=== PATIENT | female | born 1955 | race Caucasian/White ===

== ENCOUNTER 2016-12-04 10:11 | Day surgery (SDC) | payer BC ==
[2016-12-04] MEDS ORDERED: LIDOCAINE 2% MDV (20MG/ML) 20ML VIAL IV ONE (14:00)
[2016-12-04] MEDS ORDERED: PROPOFOL 10 MG/ML VIAL IV ONE (14:00)
[2016-12-04] MEDS ORDERED: MIDAZOLAM HCL 2MG/2ML VIAL IV ONE (14:00)
--- NOTE | 2016-12-06 13:00 | Operative Note ---
DATE OF SURGERY: 12/04/2016 OPERATION: COLONOSCOPY to the cecum with cold snare polypectomy x1 and cold biopsy forceps polypectomy x1. INDICATION: Family history of colon cancer in multiple second-degree relatives. Patient also with personal history of breast cancer. She has had hyperplastic polyps noted in the past. ANESTHESIA: Intravenous sedation was administered by the department of anesthesiology and included Diprivan titrated to effect. PROCEDURE: Following informed consent from this alert individual including a discussion of the risks and benefits of the procedure and an opportunity for the patient to ask questions, the patient was in the left lateral decubitus position. A digital rectal examination was performed. No abnormalities were noted. Following this, the Olympus ASP539 video colonoscope was inserted into the rectum without resistance. The rectal mucosa had a normal appearance with normal folds and distensibility. The colonoscope was advanced up through the colon to the level of the cecum without much difficulty. Throughout the bowel the mucosa appeared normal, the folds were normal, and the bowel was fairly well distensible. The cecum was defined by noting the appendiceal orifice and ileocecal valve. Preparation was good. From the base of the cecum, the colonoscope was then withdrawn. Retroflexion was first accomplished within the cecum and failed to demonstrate any changes. Withdrawal through the bowel demonstrated a 5 mm sessile polyp in the descending colon which was removed with cold snare polypectomy. There was a second 3 mm polyp noted in the rectum removed with cold biopsy forceps. Retroflexion in the rectum demonstrated hypertrophied anal papilla. No other mucosal changes were appreciated. The patient tolerated the procedure well and was returned to the recovery area in stable condition. IMPRESSION: 1. A 5 mm descending colon polyp removed with cold snare polypectomy. 2. A 3 mm rectal polyp removed with biopsy forceps. 3. Hypertrophied anal papilla. RECOMMENDATIONS: Further recommendations will be forthcoming pending results of pathology obtained today. The patient will most likely undergo recheck colonoscopy recommendations in 5 years' time. Followup will also be with Dr. Jama Silva. As always, thank you for allowing me to participate in the care of your patient. CC: Dr. Ricardo FELDER
== END 2016-12-04 13:04 | disposition home or self-care (01) ==
LOC: HOP 10:11
PROVIDERS: ATTEND Internal Medicine Gastroenterology
DX: Z87.19 Personal history of other diseases of the digestive system (principal); D12.4 Benign neoplasm of descending colon; K62.1 Rectal polyp; Z80.0 Family history of malignant neoplasm of digestive organs; Z85.3 Personal history of malignant neoplasm of breast; K62.89 Other specified diseases of anus and rectum; E78.00 Pure hypercholesterolemia, unspecified

== ENCOUNTER 2018-06-13 13:31 | Emergency (ER) | payer BC ==
--- NOTE | 2018-06-13 13:42 | Emergency Department Record ---
History of Present Illness - General Chief complaint: GI Bleed Stated complaint: BLOOD IN STOOL Time Seen by Provider: 06/13/18 13:37 Source: Patient Mode of Arrival: Ambulatory Limitations: No limitations - History of Present Illness Initial comments: 62 yo female presents after having a blood bowel movement 15 minutes ago. She was asymptomatic prior to this. She denies and symptoms currently. No abdominal pain, fever, nausea, or vomiting. She states she is in her normal state of health. No prior gastrointestinal bleeding. Her last colonoscopy was 11/2016. A colon polyp and rectal polyp were noted. Dr Silva is her PCP and Dr Plasencia is her GI physician. Her next colonoscopy is scheduled in 2021 (every 5 years) as there is a family history of colon CA. MD complaint: Gross hematochezia -: Minutes(s) (15) Radiation: None Quality: Painless Consistency: Intermittent Improves with: None Worsens with: None Context: Other (No history of the same) Associated Symptoms: Denies other symptoms - Related Data Home Medications Medication Instructions Recorded Confirmed Last Taken Atorvastatin Calcium [Lipitor] 20 mg PO DAILY 06/13/18 06/13/18 06/13/18 Calcium Carbonate [Calcium] 500 mg PO DAILY 06/13/18 06/13/18 06/13/18 Cholecalciferol (Vitamin D3) 1,000 unit PO DAILY 06/13/18 06/13/18 06/13/18 [Vitamin D3] Fexofenadine/Pseudoephedrine 1 each PO DAILY 06/13/18 06/13/18 06/13/18 [Annette-D 24 Hour Tablet] Glucosamine HCl 1,500 mg PO DAILY 06/13/18 06/13/18 06/13/18 Glucosamine/D3/Boswellia Mary 1 each PO DAILY 06/13/18 06/13/18 06/13/18 [Osteo Bi-Flex Tablet] Multivit-Min/Iron/Folic/Lutein 1 each PO DAILY 06/13/18 06/13/18 06/13/18 [Centrum Silver Women Tablet] Allergies Allergy/AdvReac Type Severity Reaction Status Date / Time Penicillins Allergy RASH Verified 06/13/18 13:42 Review of Systems Constitutional: Denies: Chills, Fever, Malaise, Weakness Eyes: Denies: Eye discharge ENT: Denies: Congestion, Throat pain Respiratory: Denies: Cough Cardiovascular: Denies: Chest pain, Syncope Endocrine: Denies: Fatigue Gastrointestinal: Reports: Hematochezia. Denies: Abdominal pain, Constipation, Diarrhea, Hematemesis, Melena, Nausea, Vomiting Genitourinary: Denies: Dysuria Musculoskeletal: Denies: Arthralgia, Back pain, Joint swelling, Myalgia Skin: Denies: Bruising, Change in color, Rash Neurological: Denies: Headache Psychiatric: Denies: Anxiety Hematological/Lymphatic: Denies: Blood Clots, Easy bleeding, Easy bruising, Swollen glands Past Medical History - SOCIAL HISTORY Smoking Status: Never smoker - RESPIRATORY Hx Respiratory Disorders: No - CARDIOVASCULAR Hx Cardio Disorders: Yes - NEURO Hx Neuro Disorders: Yes Hx Headaches: Yes (weather related) - GI Hx GI Disorders: Yes Hx Rectal Bleeding: Yes (on tissue) Hx of Polyps: Yes - Hx Genitourinary Disorders: No - ENDOCRINE Hx Endocrine Disorders: No - MUSCULOSKELETAL Hx Musculoskeletal Disorders: Yes Hx Arthritis: Yes - PSYCH Hx Psych Problems: No - HEMATOLOGY/ONCOLOGY Hx Hematology/Oncology Disorders: Yes Hx Cancer: Yes Hx Chemotherapy: Yes Hx Radiation Therapy: Yes Hx Blood Transfusions: Yes (with hyst) Hx Blood Transfusion Reaction: No Family Medical History *Cancer Comment: Paternal uncle-colon (age 80), Niece-colon Physical Exam - General General Appearance: Alert, Oriented x3, Cooperative, No acute distress Limitations: No limitations - Head Head exam: Atraumatic, Normal inspection - Eye Eye exam: Normal appearance. negative: Conjunctival injection - ENT ENT exam: Normal exam, Mucous membranes moist Ear exam: Normal external inspection Nasal Exam: Normal inspection Mouth exam: Normal external inspection - Neck Neck exam: Normal inspection - Respiratory Respiratory exam: Normal lung sounds bilaterally. negative: Respiratory distress - Cardiovascular Cardiovascular Exam: Regular rate, Normal rhythm, Normal heart sounds - GI/Abdominal GI/Abdominal exam: Soft. negative: Distended, Guarding, Tenderness - Rectal Rectal exam: Heme (+) stool, Hemorrhoids, Other (The anus has some redundant tissue possible fissure, the stool is light brown with minimal visible streak faintly of blood.). negative: Black stool (light brown), Bloody stool, Decreased rectal tone, Fecal impaction, Mass, Normal inspection - exam: Deferred - Extremities Extremities exam: Normal inspection. negative: Tenderness - Back Back exam: Denies: CVA tenderness (R), CVA tenderness (L) - Neurological Neurological exam: Alert, Oriented X3 - Psychiatric Psychiatric exam: Normal affect, Normal mood - Skin Skin exam: Dry, Intact, Normal color, Warm Course - Reevaluation(s) Reevaluation #1: The EMR was reviewed. Hgb was 14.4 in January. The Colonoscopy 11/2016 was reviewed. Polyps noted in descending colon and rectum otherwise negative. 06/13/18 13:42 Rectal examination demonstrated light brown stool with a very small faint streak of blood. No gross blood. 06/13/18 14:02 The CBC was reviewed. Hgb is 15.4 06/13/18 14:15 The BMP is normal. 06/13/18 14:22 The blood noted on examination may be hemorrhoid or fissure related. There does not appear to be any ongoing bleeding and the rectal examination suggests more of a distal process near the anus given minimal to no visible blood on rectal examination with light brown stool. She will be given precautions and reasons to return to the ED for a recheck. She was referred back to Dr Plasencia as well from GI. Medical Decision Making - Lab Data Result diagrams: 06/13/18 13:51 06/13/18 13:51 Disposition Disposition: Discharge Clinical Impression: Lower GI bleed Disposition: Home, Self-Care Condition: (1) Good Instructions: Gastrointestinal Bleeding (ED) Additional Instructions: Call your doctor for the next available follow up appointment You have been referred to Dr Plasencia for the blood in the stool you had today. Return to the ER for a recheck if worse, any new concerns or questions Review this ER visit and the tests performed with your family doctor Referrals: SWAPNA PLASENCIA [DOCTOR OF OSTEOPATH] - [facility] [Provider Group] Forms: Patient Portal Access Time of Disposition: 14:16 Quality - Quality Measures Quality Measures: N/A - Blood Pressure Screening Does Patient Have Any of the Following: No Blood Pressure Classification: Pre-Hypertensive BP Reading Systolic Measurement: 128 Diastolic Measurement: 77 Screening for High Blood Pressure: < Pre-Hypertensive BP, F/U Documented > [ [id number]] Pre-Hypertensive Follow-up Interventions: Referral to alternative/primary care provider.
[2018-06-13 14:00] LABS: BASO % 0.5 % (0-6); EOS % 1.5 % (0-6); GRAN % 65.5 % (47-80); HEMATOCRIT 44.8 % (35.0-47.0); HEMOGLOBIN 15.3 gm/dl (11.6-16.0); LYMPH % 25.8 % (16-45); MEAN CELL VOLUME 87.5 fl (81-97); MEAN CORPUSCULAR HEMOGLOBIN 29.9 pg (27-33); MEAN CORPUSCULAR HGB CONC 34.2 g/dl (32-36); MEAN PLATELET VOLUME 9.2 fl (7.4-10.4); MONO % 6.7 % (0-9); PLATELET COUNT 355 K/uL (130-400); RED BLOOD COUNT 5.12 M/uL (3.80-5.40); RED CELL DISTRIBUTION WIDTH 13.1 % (11.5-14.5); WHITE BLOOD COUNT W/O DIFF 7.4 K/uL (4.2-12.2)
[2018-06-13 14:11] LABS: BLOOD UREA NITROGEN 17 mg/dL (8-23); CREATININE 0.8 mg/dL (0.5-0.9); EST GLOMERULAR FILTRATION RATE > 60 mL/min
[2018-06-13 14:12] LABS: TOTAL PROTEIN 7.7 g/dL (6.6-8.7)
[2018-06-13 14:14] LABS: GLUCOSE,RANDOM 120 mg/dL (74-109)
[2018-06-13 14:15] LABS: PARTIAL THROMBOPLASTIN TIME 28.7 SECONDS (24.5-39.1); PROTHROMBIN TIME (PATIENT) 10.2 SECONDS (9.5-12.1)
[2018-06-13 14:17] LABS: ALB/GLOB RATIO 1.4 (1.1-1.8); ALBUMIN 4.5 g/dL (4.0-5.0); ALKALINE PHOSPHATASE 89 U/L (45-87); ALT/SGPT 18 U/L (<33); AST/SGOT 20 U/L (10.0-35.0)
== END 2018-06-13 14:39 | disposition home or self-care (01) ==
LOC: ER 13:31
DX: K92.1 Melena (principal); Z85.3 Personal history of malignant neoplasm of breast
CPT/HCPCS: 80053; 85025; 85610; 85730; 99283; 99284